=== PATIENT | female | born 1990 | race Caucasian/White ===

== ENCOUNTER 2021-04-12 15:44 | Emergency (ER) | payer BC, OTHER, MEDICAID ==
[~2021-04-12] VITALS: Ht 167.6 cm; Wt 112.0 kg
[2021-04-12 17:38] VITALS: BP 121/87
== END 2021-04-12 17:39 | disposition home or self-care (01) ==
LOC: M.ERS 15:44
DX: L98.9 Disorder of the skin and subcutaneous tissue, unspecified (principal)